=== PATIENT | male | born 1970 | race Hispanic/Latino ===

== ENCOUNTER 2022-06-14 12:13 | Inpatient (IN) | payer OTHER, SELFPAY ==
[2022-06-14] MEDS ORDERED: Fentanyl 100 MCG/2 ML VIAL ONE (12:37)
[2022-06-14] MEDS ORDERED: Boostrix 0.5 ML (Tdap) VIAL (>/=7 yrs of age) ONE (12:38)
[2022-06-14 12:49] LABS: #Eosinphils 0.2 thou/uL (0.0-0.7); #Lymphocytes 1.6 thou/uL (1.20-3.40); #Monocytes 0.9 thou/uL (0.11-0.59); #Neutrophils 9.4 thou/uL (1.40-6.50); %Basophils 0.1 % (0.0-1.0); %Eosinophils 1.4 % (0.0-10.0); %Lymphocytes 13.6 % (21.0-51.0); %Monocytes 7.3 % (0.0-10.0); %Neutrophils 77.7 % (42.0-75.0); Hemoglobin 14.7 g/dL (14.0-18.0); Mean Corpuscular HGB CONC 34.4 g/dL (32.0-36.0); Mean Corpuscular Hemoglobin 29.4 pg (27.0-31.0); Mean Corpuscular Volume 85.6 fL (78.0-98.0); Mean Platelet Volume 6.9 fL (7.4-10.4); Platelet Count 203 thou/uL (130-400); RBC Distribution Width 11.2 % (11.5-14.5); Red Blood Cell (RBC) Count 4.99 mill/uL (4.70-6.10); White Blood Cell (WBC) Count 12.1 thou/uL (4.8-10.8)
[2022-06-14 13:09] LABS: ALT (SGPT) 30 U/L (8-55); AST (SGOT) 21 U/L (5-34); Albumin 3.9 g/dL (3.5-5.0); Alkaline Phosphatase 107 U/L (40-110); Anion Gap 12 mmol/L (10-20); BUN (Urea Nitrogen) 6 mg/dL (8.9-20.6); Bilirubin, Total 0.7 mg/dL (0.2-1.2); Calc. Creatinine Clearance 0 mL/min (70-130); Calcium 8.8 mg/dL (7.8-10.44); Carbon Dioxide 23 mmol/L (22-29); Chloride 107 mmol/L (98-107); Estimated GFR 113; Glucose 213 mg/dL (70-105); Potassium 3.9 mmol/L (3.5-5.1); Protein, Total 6.9 g/dL (6.0-8.3); Sodium 138 mmol/L (136-145)
[2022-06-14] MEDS ORDERED: Iopamidol-370 76% 500 ML 1 ML ONE (13:13)
[2022-06-14] MEDS ORDERED: Morphine 4 MG/ML VIAL ONE (13:59)
[2022-06-14] MEDS ORDERED: diphenhydrAMINE 50 MG/ML VIAL IM PRN (14:32)
[2022-06-14] MEDS ORDERED: Naloxone HCl 0.4 mg/ml Vial IV PRN (14:32)
[2022-06-14] MEDS ORDERED: HYDROmorphone 10 mg/100 ml CADD IVPB PRN (14:32)
[2022-06-14] MEDS ORDERED: diphenhydrAMINE 25 MG CAP PO PRN (14:32)
[2022-06-14] MEDS ORDERED: Zolpidem Tartrate 5 MG TAB PO PRN (14:32)
[2022-06-14] MEDS ORDERED: Ondansetron PF 4 MG/2 ML Vial IVP PRN (14:32)
[2022-06-14] MEDS ORDERED: diphenhydrAMINE 50 MG/ML VIAL IVP PRN (14:32)
[2022-06-14] MEDS ORDERED: Promethazine HCl 25 MG/ML VIAL IM PRN (14:32)
[2022-06-14] MEDS ORDERED: Acetaminophen 325 MG TAB PO PRN ×2 (14:38→18:06)
[2022-06-14] MEDS ORDERED: Morphine 2 MG/ML VIAL SLOW IVP PRN (14:38)
[2022-06-14] MEDS ORDERED: Dextrose 50% Abboject 50 ML SYRINGE SLOW IVP PRN (14:38)
[2022-06-14] MEDS ORDERED: Dextrose 5% in Water 1,000 ML IV PRN (14:38)
[2022-06-14] MEDS ORDERED: TETANUS, DIPHTHERIA TOX,ADULT (TDVAX) 0.5 ML VIAL IM ONE (14:38)
[2022-06-14] MEDS ORDERED: Rib Fracture Protocol IV PRN (14:45)
[2022-06-14] MEDS ORDERED: Communication Order-Pharmacy FS PRN (14:45)
[2022-06-14] MEDS ORDERED: CEFAZOLIN 2 GM in Sodium Chloride 0.9% 100 ML IVPB SCH (15:00)
[2022-06-14] MEDS ORDERED: [UNRECOGNIZED DRUG - OTHER] IVPB SCH (15:15)
[2022-06-14] MEDS: Sodium Chloride 0.9% 1,000 ML IV SCH ×2 (17:48→20:33)
[2022-06-14] MEDS: Ketorolac Tromethamine 30 MG/ML VIAL IVP SCH (17:53)
[2022-06-14] MEDS: traMADol HCl 50 MG TAB PO SCH (17:54)
[2022-06-14] MEDS ORDERED: Acetaminophen 500 MG TAB PO SCH (18:00)
[2022-06-14] MEDS ORDERED: Acetaminophen 650 MG Suppository PR SCH (18:00)
[2022-06-14 18:01] VITALS: BMI 33.3
[2022-06-14] MEDS: Gabapentin 300 MG CAP PO SCH (20:32)
[2022-06-14] MEDS: Insulin Regular 300 UNITS/3 ML VIAL SC PRN (20:32)
[2022-06-14] MEDS: Famotidine/PF 20 mg/2ml Vial SLOW IVP SCH (20:32)
[2022-06-14] MEDS: Cyclobenzaprine 10 MG TAB PO PRN (20:34)
[2022-06-14] MEDS ORDERED: Ibuprofen 200 MG TAB PO SCH (22:00)
[2022-06-14 22:12] LABS: SARS-CoV-2 NAA Rapid Test Not Detected (NotDetected)
[2022-06-15] MEDS: Ketorolac Tromethamine 30 MG/ML VIAL IVP SCH ×5 (00:27→23:47)
[2022-06-15] MEDS: Acetaminophen 325 MG TAB PO SCH ×5 (00:27→23:48)
[2022-06-15] MEDS: traMADol HCl 50 MG TAB PO SCH ×5 (00:28→23:48)
[2022-06-15 06:01] LABS: #Eosinphils 0.1 thou/uL (0.0-0.7); #Lymphocytes 1.1 thou/uL (1.20-3.40); #Monocytes 0.5 thou/uL (0.11-0.59); #Neutrophils 4.1 thou/uL (1.40-6.50); %Basophils 0.3 % (0.0-1.0); %Eosinophils 1.3 % (0.0-10.0); %Lymphocytes 19.3 % (21.0-51.0); %Monocytes 8.7 % (0.0-10.0); %Neutrophils 70.4 % (42.0-75.0); Hemoglobin 12.2 g/dL (14.0-18.0); Mean Corpuscular HGB CONC 34.4 g/dL (32.0-36.0); Mean Corpuscular Hemoglobin 29.4 pg (27.0-31.0); Mean Corpuscular Volume 85.6 fL (78.0-98.0); Mean Platelet Volume 6.8 fL (7.4-10.4); Platelet Count 183 thou/uL (130-400); RBC Distribution Width 11.2 % (11.5-14.5); Red Blood Cell (RBC) Count 4.14 mill/uL (4.70-6.10); White Blood Cell (WBC) Count 5.8 thou/uL (4.8-10.8)
[2022-06-15 06:12] LABS: INR-International Normal Ratio 1.2; PTT 34.9 sec (22.9-36.1); Prothrombin Time 14.8 sec (12.0-14.7)
[2022-06-15 06:54] LABS: Phosphorus 3.4 mg/dL (2.3-4.7)
[2022-06-15 06:55] LABS: Anion Gap 12 mmol/L (10-20); BUN (Urea Nitrogen) 9 mg/dL (8.9-20.6); Calc. Creatinine Clearance 174 mL/min (70-130); Calcium 7.9 mg/dL (7.8-10.44); Carbon Dioxide 23 mmol/L (22-29); Chloride 104 mmol/L (98-107); Estimated GFR 115; Glucose 154 mg/dL (70-105); Magnesium 1.8 mg/dL (1.6-2.6); Potassium 3.6 mmol/L (3.5-5.1); Sodium 135 mmol/L (136-145)
[2022-06-15] MEDS ORDERED: CEFAZOLIN 2 GM VIAL ONE (07:46)
[2022-06-15] MEDS ORDERED: Sodium Chloride 0.9% 100 ML ONE (07:46)
[2022-06-15] MEDS ORDERED: Ondansetron HCl/PF 4 MG/2 ML Vial IVP PRN (08:03)
[2022-06-15] MEDS ORDERED: Promethazine HCl 25 MG/ML VIAL IM PRN (08:03)
[2022-06-15] MEDS ORDERED: Promethazine HCl 25 MG/ML VIAL IVPB PRN (08:03)
[2022-06-15] MEDS ORDERED: fentaNYL Citrate/PF 100 MCG/2 ML SYRINGE ONE ×3 (08:15→10:01)
[2022-06-15] MEDS ORDERED: PHENYLEPHRINE-NS 100 MCG/ML 10 ML SYRINGE ONE ×2 (08:16→09:17)
[2022-06-15] MEDS ORDERED: PROPOFOL 200 MG/20 ML VIAL ONE (08:16)
[2022-06-15] MEDS ORDERED: Ondansetron PF 4 MG/2 ML Vial ONE (08:16)
[2022-06-15] MEDS ORDERED: Rocuronium Bromide 10 MG/ML (10ML VIAL) ONE (08:16)
[2022-06-15] MEDS ORDERED: Magnesium 2 GM/50 ML(in water) 3 GM in Premix Bag 1 BAG IVPB SCH (09:00)
[2022-06-15] MEDS: Sodium Chloride 0.9% 1,000 ML IV SCH ×2 (09:50→12:35)
[2022-06-15] MEDS: Famotidine/PF 20 mg/2ml Vial SLOW IVP SCH ×2 (09:51→20:22)
[2022-06-15] MEDS ORDERED: Magnesium Sulfate 3 GM in Sodium Chloride 0.9% 100 ML IVPB SCH (10:00)
[2022-06-15] MEDS ORDERED: Potassium Phosphate 30 MMOL, Magnesium Sulfate 3 GM in Sodium Chloride 0.9% 250 ML 250 ML IVPB SCH (10:00)
[2022-06-15] MEDS ORDERED: Potassium Phosphate 30 MMOL in Sodium Chloride 0.9% 250 ML 250 ML IVPB SCH (10:00)
[2022-06-15] MEDS: Gabapentin 300 MG CAP PO SCH ×3 (10:01→20:22)
[2022-06-15] MEDS ORDERED: SUGAMMADEX SODIUM 200 MG/2 ML VIAL ONE (10:20)
[2022-06-15] MEDS ORDERED: Fentanyl 100 MCG/2 ML VIAL ONE (10:49)
[2022-06-15] MEDS: CEFAZOLIN 2 GM in Sodium Chloride 0.9% 100 ML IVPB SCH ×2 (16:51→23:47)
[2022-06-15] MEDS: Cyclobenzaprine 10 MG TAB PO PRN (20:22)
[2022-06-15] MEDS: Insulin Regular 300 UNITS/3 ML VIAL SC PRN (23:51)
[2022-06-16] MEDS: Sodium Chloride 0.9% 1,000 ML IV SCH (02:04)
[2022-06-16] MEDS: Acetaminophen 325 MG TAB PO SCH (04:43)
[2022-06-16] MEDS: Ketorolac Tromethamine 30 MG/ML VIAL IVP SCH ×2 (04:44→11:58)
[2022-06-16] MEDS: traMADol HCl 50 MG TAB PO SCH ×3 (04:56→18:43)
[2022-06-16 05:46] LABS: #Eosinphils 0.2 thou/uL (0.0-0.7); #Lymphocytes 1.1 thou/uL (1.20-3.40); #Monocytes 0.7 thou/uL (0.11-0.59); %Basophils 0.1 % (0.0-1.0); %Monocytes 8.8 % (0.0-10.0); %Neutrophils 75.1 % (42.0-75.0); Hemoglobin 10.1 g/dL (14.0-18.0); Mean Corpuscular Hemoglobin 29.7 pg (27.0-31.0); Mean Platelet Volume 6.6 fL (7.4-10.4); Platelet Count 149 thou/uL (130-400); RBC Distribution Width 11.1 % (11.5-14.5); Red Blood Cell (RBC) Count 3.41 mill/uL (4.70-6.10)
[2022-06-16 06:04] LABS: Anion Gap 10 mmol/L (10-20); BUN (Urea Nitrogen) 5 mg/dL (8.9-20.6); Calc. Creatinine Clearance 194 mL/min (70-130); Calcium 7.1 mg/dL (7.8-10.44); Carbon Dioxide 24 mmol/L (22-29); Chloride 103 mmol/L (98-107); Estimated GFR 119; Glucose 160 mg/dL (70-105); Magnesium 2.2 mg/dL (1.6-2.6); Phosphorus 2.3 mg/dL (2.3-4.7); Potassium 3.7 mmol/L (3.5-5.1); Sodium 133 mmol/L (136-145)
[2022-06-16] MEDS ORDERED: Enoxaparin Sodium 40 MG/0.4 ML SYRINGE SC SCH (09:00)
[2022-06-16] MEDS ORDERED: traMADol HCl 50 MG TAB PO PRN (09:49)
[2022-06-16] MEDS: Gabapentin 300 MG CAP PO SCH ×3 (09:51→20:16)
[2022-06-16] MEDS: Famotidine/PF 20 mg/2ml Vial SLOW IVP SCH ×2 (09:51→20:15)
[2022-06-16] MEDS: Enoxaparin Sodium 30 MG/0.3 ML SYRINGE SC SCH ×2 (09:51→20:15)
[2022-06-16] MEDS: Acetaminophen 500 MG TAB PO SCH ×2 (11:54→18:42)
[2022-06-16] MEDS ORDERED: traMADol HCl 50 MG TAB PO SCH (12:00)
[2022-06-16] MEDS ORDERED: Cepastat Lozenges 1 LOZ PO PRN (14:53)
[2022-06-16] MEDS: Insulin Regular 300 UNITS/3 ML VIAL SC PRN (16:31)
[2022-06-16 17:45] LABS: Troponin I Less than 0.010 ng/mL (< 0.028)
[2022-06-16 18:12] LABS: Hemoglobin A1c 6.7 % (4.0-6.0)
[2022-06-16] MEDS: Ibuprofen 200 MG TAB PO SCH (18:42)
[2022-06-16] MEDS ORDERED: Lorazepam 1 MG TAB PO SCH (19:05)
[2022-06-16] MEDS: Ascorbic Acid 500 mg Chewable Tablet PO SCH (20:15)
[2022-06-16] MEDS: Senokot S 8.6-50 MG TAB PO SCH (20:15)
[2022-06-16] MEDS ORDERED: Sodium Chloride 0.9% 500 ML IV SCH (21:00)
[2022-06-16] MEDS ORDERED: Morphine 4 MG/ML VIAL SLOW IVP SCH (21:00)
[2022-06-16 21:20] LABS: #Eosinphils 0.2 thou/uL (0.0-0.7); #Lymphocytes 1.1 thou/uL (1.20-3.40); #Monocytes 0.7 thou/uL (0.11-0.59); %Eosinophils 3.2 % (0.0-10.0); %Monocytes 10.5 % (0.0-10.0); %Neutrophils 70.3 % (42.0-75.0); Hemoglobin 10.1 g/dL (14.0-18.0); Mean Corpuscular HGB CONC 35.9 g/dL (32.0-36.0); Mean Corpuscular Hemoglobin 30.6 pg (27.0-31.0); Mean Corpuscular Volume 85.2 fL (78.0-98.0); Mean Platelet Volume 6.6 fL (7.4-10.4); Platelet Count 156 thou/uL (130-400); RBC Distribution Width 11.1 % (11.5-14.5); Red Blood Cell (RBC) Count 3.29 mill/uL (4.70-6.10); White Blood Cell (WBC) Count 7.1 thou/uL (4.8-10.8)
[2022-06-16 21:48] LABS: Anion Gap 8 mmol/L (10-20); BUN (Urea Nitrogen) 6 mg/dL (8.9-20.6); Calc. Creatinine Clearance 161 mL/min (70-130); Calcium 7.9 mg/dL (7.8-10.44); Carbon Dioxide 28 mmol/L (22-29); Chloride 103 mmol/L (98-107); Estimated GFR 112; Glucose 256 mg/dL (70-105); Magnesium 2.2 mg/dL (1.6-2.6); Potassium 3.9 mmol/L (3.5-5.1); Sodium 135 mmol/L (136-145)
[2022-06-16] MEDS ORDERED: Sodium Phosphate 30 MMOL in Sodium Chloride 0.9% 250 ML 250 ML IVPB SCH (22:30)
[2022-06-17] MEDS: Acetaminophen 500 MG TAB PO SCH ×2 (00:37→05:17)
[2022-06-17] MEDS: traMADol HCl 50 MG TAB PO SCH ×4 (00:40→18:36)
[2022-06-17] MEDS: Ibuprofen 200 MG TAB PO SCH ×2 (00:47→09:47)
[2022-06-17] MEDS: Insulin Regular 300 UNITS/3 ML VIAL SC PRN ×3 (05:16→21:43)
[2022-06-17 05:20] LABS: Hemoglobin 9.8 g/dL (14.0-18.0)
[2022-06-17 06:25] LABS: Anion Gap 10 mmol/L (10-20); BUN (Urea Nitrogen) 8 mg/dL (8.9-20.6); Calc. Creatinine Clearance 194 mL/min (70-130); Carbon Dioxide 25 mmol/L (22-29); Chloride 106 mmol/L (98-107); Estimated GFR 119; Glucose 198 mg/dL (70-105); Phosphorus 2.9 mg/dL (2.3-4.7); Potassium 3.8 mmol/L (3.5-5.1); Sodium 137 mmol/L (136-145)
[2022-06-17] MEDS ORDERED: Ferrous Sulfate 325 MG TAB PO SCH (08:00)
[2022-06-17] MEDS: Famotidine 20 MG TAB PO SCH ×2 (09:46→21:40)
[2022-06-17] MEDS: Senokot S 8.6-50 MG TAB PO SCH ×2 (09:46→21:42)
[2022-06-17] MEDS: Enoxaparin Sodium 30 MG/0.3 ML SYRINGE SC SCH ×2 (09:46→21:41)
[2022-06-17] MEDS: Ascorbic Acid 500 mg Chewable Tablet PO SCH ×2 (09:46→21:42)
[2022-06-17] MEDS: Gabapentin 300 MG CAP PO SCH ×3 (09:47→21:42)
[2022-06-17] MEDS: Ferrous Sulfate 325 MG TAB PO SCH ×2 (09:47→21:42)
[2022-06-17] MEDS ORDERED: Acetaminophen/Codeine 30-300mg Tablet PO PRN (10:50)
[2022-06-17] MEDS: Acetaminophen/Codeine 30-300mg Tablet PO SCH ×2 (13:31→18:37)
[2022-06-17] MEDS ORDERED: FLU VACC QS2022-23(6MOS UP)/PF 60 MCG/0.5 ML SYRINGE IM ONE (18:30)
[2022-06-18] MEDS: traMADol HCl 50 MG TAB PO SCH ×4 (00:07→17:02)
[2022-06-18] MEDS: Acetaminophen/Codeine 30-300mg Tablet PO SCH ×4 (00:08→17:00)
[2022-06-18] MEDS: Insulin Regular 300 UNITS/3 ML VIAL SC PRN ×3 (06:24→17:01)
[2022-06-18] MEDS: Ferrous Sulfate 325 MG TAB PO SCH ×2 (08:54→20:34)
[2022-06-18] MEDS: Ascorbic Acid 500 mg Chewable Tablet PO SCH ×2 (08:54→20:34)
[2022-06-18] MEDS: Famotidine 20 MG TAB PO SCH ×2 (08:55→20:34)
[2022-06-18] MEDS: Gabapentin 300 MG CAP PO SCH ×3 (08:55→20:33)
[2022-06-18] MEDS: Senokot S 8.6-50 MG TAB PO SCH ×2 (08:55→20:33)
[2022-06-18] MEDS: Enoxaparin Sodium 30 MG/0.3 ML SYRINGE SC SCH ×2 (08:55→20:34)
[2022-06-19] MEDS: Acetaminophen/Codeine 30-300mg Tablet PO SCH ×6 (00:15→23:47)
[2022-06-19] MEDS: traMADol HCl 50 MG TAB PO SCH ×5 (00:16→23:49)
[2022-06-19] MEDS: Enoxaparin Sodium 30 MG/0.3 ML SYRINGE SC SCH ×2 (09:54→21:33)
[2022-06-19] MEDS: Gabapentin 300 MG CAP PO SCH ×3 (09:54→21:32)
[2022-06-19] MEDS: Ferrous Sulfate 325 MG TAB PO SCH ×2 (09:54→21:33)
[2022-06-19] MEDS: Ascorbic Acid 500 mg Chewable Tablet PO SCH ×2 (09:54→21:33)
[2022-06-19] MEDS: Famotidine 20 MG TAB PO SCH ×2 (09:54→21:32)
[2022-06-19] MEDS: Senokot S 8.6-50 MG TAB PO SCH ×2 (09:54→23:47)
[2022-06-19] MEDS: Insulin Regular 300 UNITS/3 ML VIAL SC PRN ×2 (12:30→22:47)
[2022-06-20] MEDS: Acetaminophen/Codeine 30-300mg Tablet PO SCH ×5 (03:24→19:48)
[2022-06-20] MEDS: traMADol HCl 50 MG TAB PO SCH ×3 (05:27→18:28)
[2022-06-20] MEDS: Ascorbic Acid 500 mg Chewable Tablet PO SCH ×2 (09:06→19:49)
[2022-06-20] MEDS: Ferrous Sulfate 325 MG TAB PO SCH ×2 (09:07→19:49)
[2022-06-20] MEDS: Gabapentin 300 MG CAP PO SCH ×3 (09:07→19:50)
[2022-06-20] MEDS: Enoxaparin Sodium 30 MG/0.3 ML SYRINGE SC SCH ×2 (09:07→19:55)
[2022-06-20] MEDS: Senokot S 8.6-50 MG TAB PO SCH ×2 (09:07→20:16)
[2022-06-20] MEDS: Famotidine 20 MG TAB PO SCH ×2 (09:07→19:50)
[2022-06-20 13:27] LABS: #Eosinphils 0.3 thou/uL (0.0-0.7); #Lymphocytes 1.1 thou/uL (1.20-3.40); #Monocytes 0.6 thou/uL (0.11-0.59); %Basophils 0.1 % (0.0-1.0); %Eosinophils 4.9 % (0.0-10.0); %Lymphocytes 19.1 % (21.0-51.0); %Monocytes 9.5 % (0.0-10.0); %Neutrophils 66.5 % (42.0-75.0); Hemoglobin 10.8 g/dL (14.0-18.0); Mean Corpuscular HGB CONC 34.7 g/dL (32.0-36.0); Mean Corpuscular Hemoglobin 29.6 pg (27.0-31.0); Mean Corpuscular Volume 85.2 fL (78.0-98.0); Mean Platelet Volume 6.1 fL (7.4-10.4); Platelet Count 326 thou/uL (130-400); RBC Distribution Width 11.9 % (11.5-14.5); Red Blood Cell (RBC) Count 3.66 mill/uL (4.70-6.10)
[2022-06-20] MEDS: Insulin Regular 300 UNITS/3 ML VIAL SC PRN (20:22)
[2022-06-23 10:58] VITALS: BP 119/80
[2022-06-23 11:04] VITALS: TEMP 98.5
== END 2022-06-20 21:10 | DRG 481 ==
LOC: ERS 12:13 → SJJU 14:21
PROVIDERS: ADMIT Surgery; ATTEND Surgery
PROC: 0QSB04Z Reposition Right Lower Femur with Internal Fixation Device, Open Approach (ICD-10-PCS; principal; 2022-06-15)
PROC: 0PSH04Z Reposition Right Radius with Internal Fixation Device, Open Approach (ICD-10-PCS; 2022-06-15)
DX: S72.401A Unspecified fracture of lower end of right femur, initial encounter for closed fracture (principal); S32.021A Stable burst fracture of second lumbar vertebra, initial encounter for closed fracture; S52.501A Unspecified fracture of the lower end of right radius, initial encounter for closed fracture; S52.611A Displaced fracture of right ulna styloid process, initial encounter for closed fracture; W11.XXXA Fall on and from ladder, initial encounter; D64.9 Anemia, unspecified; Z20.822 Contact with and (suspected) exposure to COVID-19; Z98.890 Other specified postprocedural states; Y92.9 Unspecified place or not applicable
CPT/HCPCS: 24650; 25622; 36415; 36416; 71045; 72125; 74177; 76000; 80048; 80053; 83036; 83735; 83880; 84100; 84443; 84484; 85014; 85018; 85025; 85520; 85610; 85730; 86850; 86900; 86901; 90471; 90715; 93005; 93010; 96374; 96375; C1713; G0390; J0690; J1650; J1815; J1885; J2270; J2405; J2704; J3010; J3475; J3490; J7030; J7050; Q9967; S0028; U0002